=== PATIENT | female | born 1980 | race Caucasian/White ===

== ENCOUNTER 2017-07-22 01:36 | Emergency (ER) | payer OTHER ==
[~2017-07-22] VITALS: Ht 157.5 cm; Wt 86.2 kg
[~2017-07-22 01:36] MED LIST: ADVAIR 500-501 EACH INH; BACTRIM-DS1 EA ORAL; DOXYCYCLINE HY100 M6 PO; DOXYCYCLINE HY100 M7 PO; IRON325 M1 PO; PREDNISONE5 M3 PO; SAPHRIS5 MG SL; SEROQUEL50 MG ORAL; ZOLOFT25 MG ORAL
--- NOTE | 2017-07-22 01:44 | Emergency Room Report ---
History of Present Illness General Chief Complaint: To Be Triaged Source: Patient Present Illness HPI Is a 36 year old female who has a history of asthma. She was brought in by police for evaluation. She was just stress from the hospital last week for asthma exacerbation. She is currently on a taper for prednisone an almost finished. She has not taken for today yet. She has no complaint. Because of her history of asthma she was sent in for evaluation. Patient denies any cough or congestion. Denies any fever chills. Denies any wheezing. Allergies: Coded Allergies: IODINE (Verified Allergy, Unknown, 06/29/15) Uncoded Allergies: shellfish (Allergy, Unknown, 06/29/15) Patient History Past Medical History: see triage record, old chart reviewed, asthma Past Surgical History: other Pertinent Family History: none Social History: Denies: smoking Now: No Immunizations: other Reviewed Nursing Documentation: PMH: Agreed; PSxH: Agreed Nursing Documentation-PMH Hx Cardiac Problems: No Hx Asthma: Yes - since age 2 Hx Cancer: No Hx Gastrointestinal Problems: No Hx Neurological Problems: No - fainting spells Review of Systems Eye: Denies: eye pain, blurred vision ENT: Denies: ear pain, nose congestion, throat swelling Respiratory: Denies: cough, shortness of breath Cardiovascular: Denies: chest pain, palpitations Gastrointestinal: Denies: abdominal pain, diarrhea, nausea, vomiting Musculoskeletal: Denies: back pain, joint pain Skin: Denies: rash Neurological: Denies: headache, numbness Endocrine: Denies: increased thirst, increased urine Hematologic/Lymphatic: Denies: easy bruising All Other Systems: negative except mentioned in HPI Physical Exam [id number] EP Interpretation: reviewed, normal General Appearance: well appearing, no apparent distress, alert, obese Head: normocephalic, atraumatic Eyes: bilateral eye PERRL, bilateral eye EOMI ENT: hearing grossly normal, normal pharynx Neck: full range of motion, supple, no meningismus Respiratory: chest non-tender, lungs clear, normal breath sounds Cardiovascular #1: regular rate, rhythm, no murmur Gastrointestinal: normal bowel sounds, non tender, no mass, no organomegaly, no bruit, non-distended Musculoskeletal: back normal, gait/station normal, normal range of motion Psychiatric: mood/affect normal Skin: warm/dry Medical Decision Making Diagnostic Impression: Primary Impression: Asthma Qualified Codes: J45.20 - Mild intermittent asthma, uncomplicated Additional Impression: Examination for medicolegal reason ER Course Patient presents with evaluation for her asthma. She's not wheezing at this moment in time. I gave her last dose of prednisone. Because she's not wheezing has no complaint, I see no issue with her booking. We'll discharge [employer] police officer. Status: unchanged Disposition: D/C TO LAW ENFORCEMENT IN [facility] Condition: Stable Additional Instructions: Follow-up with your doctor in 7 days. Return if symptom worsen. ISI SHERWOOD M.D. July 22, 2017 01:44
[2017-07-22 01:50] VITALS: BP 143/93
[2017-07-22 01:59] VITALS: BP 143/93
== END 2017-07-22 02:00 ==
LOC: EMR 01:48
DX: J45.21 Mild intermittent asthma with (acute) exacerbation (principal); Z02.89 Encounter for other administrative examinations
CPT/HCPCS: 99283